=== PATIENT | male | born 1980 | race Native Hawaiian/Other Pacific Islander ===

== ENCOUNTER 2017-09-13 08:55 | Emergency (ER) | payer OTHER ==
[~2017-09-13] VITALS: Ht 175.3 cm; Wt 96.6 kg
[2017-09-13 09:10] VITALS: TEMP 97.4
[2017-09-13] MEDS ORDERED: LISI20TA31 OR (09:17)
[2017-09-13 10:02] VITALS: BP 145/98
== END 2017-09-13 10:08 | disposition home or self-care (01) ==
LOC: ED 08:55
DX: R07.0 Pain in throat (principal); R09.89 Other specified symptoms and signs involving the circulatory and respiratory systems
CPT/HCPCS: 99283

== ENCOUNTER 2018-04-08 08:01 | Outpatient (CLI) | payer OTHER ==
[~2018-04-08 08:01] MED LIST: LISI20TA31 OR
== END 2018-04-08 19:50 | disposition home or self-care (01) ==
LOC: RAD 08:01
DX: M25.551 Pain in right hip (principal)

== ENCOUNTER 2019-02-28 21:01 | Emergency (ER) | payer OTHER ==
[~2019-02-28] VITALS: Ht 177.8 cm; Wt 98.9 kg
[2019-02-28 21:05] VITALS: BP 154/107; TEMP 98.1
[2019-02-28] MEDS ORDERED: ALPR0.5T24 PO (21:24)
[2019-02-28] MEDS ORDERED: REQUIP5 MG PO (21:25)
== END 2019-02-28 23:00 | disposition home or self-care (01) ==
LOC: ED 21:01
PROC: 2W3KX1Z Immobilization of Left Finger using Splint (ICD-10-PCS; principal; 2019-02-28)
DX: S62.635A Displaced fracture of distal phalanx of left ring finger, initial encounter for closed fracture (principal); X58.XXXA Exposure to other specified factors, initial encounter; Y92.89 Other specified places as the place of occurrence of the external cause
CPT/HCPCS: 99282

== ENCOUNTER 2019-04-09 09:29 | Emergency (ER) | payer OTHER ==
[~2019-04-09] VITALS: Ht 177.8 cm; Wt 95.3 kg
[~2019-04-09 09:29] MED LIST changes: +ALPR0.5T24 PO; +REQUIP5 MG PO
[2019-04-09 09:38] VITALS: TEMP 98.1
[2019-04-09 10:25] VITALS: BP 148/99
== END 2019-04-09 10:25 | disposition home or self-care (01) ==
LOC: ED 09:29
DX: S71.112A Laceration without foreign body, left thigh, initial encounter (principal); W29.8XXA Contact with other powered hand tools and household machinery, initial encounter; Y92.89 Other specified places as the place of occurrence of the external cause
CPT/HCPCS: 90471; 90715; 96372; 99283; J0696

== ENCOUNTER 2019-06-02 15:24 | Outpatient (CLI) | payer OTHER | END 2019-06-02 23:12 | disposition home or self-care (01) | LOC: RAD 15:24 | DX: M25.551 Pain in right hip (principal) ==

== ENCOUNTER 2020-06-22 12:58 | Outpatient (CLI) | payer OTHER | END 2020-06-22 22:11 | disposition home or self-care (01) | LOC: LAB 12:58 | PROVIDERS: ATTEND Nurse Practitioner Family | DX: R50.9 Fever, unspecified (principal); Z11.59 Encounter for screening for other viral diseases | CPT/HCPCS: 87635; G2023; U0003 ==

== ENCOUNTER 2021-07-21 08:28 | Outpatient (CLI) | payer OTHER | END 2021-07-21 21:18 | disposition home or self-care (01) | LOC: RAD 08:28 | PROVIDERS: ATTEND Nurse Practitioner Family | DX: R06.02 Shortness of breath (principal); R06.2 Wheezing ==

== ENCOUNTER 2021-10-29 08:09 | Outpatient (CLI) | payer OTHER | END 2021-10-29 19:29 | disposition home or self-care (01) | LOC: LABW 08:09 | PROVIDERS: ATTEND Internal Medicine Cardiovascular Disease | DX: E78.5 Hyperlipidemia, unspecified (principal); I25.10 Atherosclerotic heart disease of native coronary artery without angina pectoris | CPT/HCPCS: 36415; 80061; 80076 ==

== ENCOUNTER 2022-10-16 16:35 | Outpatient (CLI) | payer OTHER | END 2022-10-16 19:30 | disposition home or self-care (01) | LOC: RAD 16:35 | PROVIDERS: ATTEND Nurse Practitioner Family | DX: M25.562 Pain in left knee (principal) ==

== ENCOUNTER 2022-10-17 08:17 | Emergency (ER) | payer OTHER ==
[~2022-10-17] VITALS: Ht 177.8 cm; Wt 92.1 kg
[2022-10-17 08:27] VITALS: BP 136/86; TEMP 97.9
== END 2022-10-17 09:30 | disposition home or self-care (01) ==
LOC: ED 08:17
DX: S80.12XA Contusion of left lower leg, initial encounter (principal); F17.210 Nicotine dependence, cigarettes, uncomplicated; W21.07XA Struck by softball, initial encounter
CPT/HCPCS: 96372; 99282; J1885

== ENCOUNTER 2023-01-22 07:48 | Outpatient (CLI) | payer OTHER | END 2023-01-22 19:03 | disposition home or self-care (01) | LOC: RAD 07:48 | PROVIDERS: ATTEND Nurse Practitioner Family | DX: M79.671 Pain in right foot (principal); M79.89 Other specified soft tissue disorders ==

== ENCOUNTER 2023-08-07 09:17 | Outpatient (CLI) | payer OTHER | END 2023-08-07 19:27 | disposition home or self-care (01) | LOC: RAD 09:17 | PROVIDERS: ATTEND Nurse Practitioner Family | DX: M79.671 Pain in right foot (principal); R60.0 Localized edema ==